=== PATIENT | male | born 1955 | race Caucasian/White ===

== ENCOUNTER 2018-09-03 14:14 | Outpatient (CLI) | payer BC ==
--- NOTE | 2018-09-03 14:32 | RAD ---
LUMBAR SPINE TWO VIEWS: History: Low back pain. FINDINGS: There are five lumbar type vertebrae. Pedicles are intact. Vertebral body height and alignment are ma intained. No aggressive osseous erosions. Osteophytosis of the lower facets. IMPRESSION: Mild osteoarthritic changes lower lumbar spine. No acute osseous abnormalities are demonstrated. POS: [facility]
== END 2018-09-03 14:15 | disposition home or self-care (01) ==
LOC: BICRAD 14:14
PROVIDERS: ATTEND Internal Medicine Rheumatology
DX: M46.99 Unspecified inflammatory spondylopathy, multiple sites in spine (principal); M47.816 Spondylosis without myelopathy or radiculopathy, lumbar region
CPT/HCPCS: 72100

== ENCOUNTER 2024-09-09 17:33 | Inpatient (IN) | payer BC, SELFPAY ==
[2024-09-10 17:55] VITALS: BMI 30.2
[2024-09-11 10:08] LABS: ALT (SGPT) 23 U/L (8-55); AST (SGOT) 17 U/L (5-34); Albumin 3.6 g/dL (3.4-4.8); Alkaline Phosphatase 56 U/L (40-110); Anion Gap 12 mmol/L (10-20); BUN (Urea Nitrogen) 15 mg/dL (8.4-25.7); Bilirubin, Total 0.8 mg/dL (0.2-1.2); Calc. Creatinine Clearance 112 mL/min (70-130); Carbon Dioxide 29 mmol/L (23-31); Chloride 106 mmol/L (98-107); Estimated GFR 88; Globulin 2.8 g/dL (2.4-3.5); Glucose 134 mg/dL (80-115); Potassium 3.7 mmol/L (3.5-5.1); Protein, Total 6.4 g/dL (5.8-8.1); Sodium 143 mmol/L (136-145)
[2024-09-11 18:04] LABS: #Basophils 0.03 10x3/uL (0.0-0.2); %Basophils 0.3 % (0.0-1.0); %Eosinophils 3.5 % (0.0-10.0); %Lymphocytes 24.9 % (21.0-51.0); %Monocytes 10.3 % (0.0-10.0); %Neutrophils 60.7 % (42.0-75.0); Hematocrit 41.4 % (42.0-52.0); Mean Corpuscular HGB CONC 33.8 g/dL (32.0-36.0); Mean Corpuscular Hemoglobin 29.3 pg (27.0-31.0); Mean Corpuscular Volume 86.6 fL (78.0-98.0); Platelet Count 164 10x3/uL (130-400); RBC Distribution Width 13.7 % (11.5-14.5); Red Blood Cell (RBC) Count 4.78 mill/uL (4.70-6.10)
[2024-09-14 12:11] LABS: Hematocrit 43.5 % (42.0-52.0); Hemoglobin 15.2 g/dL (14.0-18.0); Mean Corpuscular HGB CONC 34.9 g/dL (32.0-36.0); Mean Corpuscular Hemoglobin 29.5 pg (27.0-31.0); Mean Corpuscular Volume 84.3 fL (78.0-98.0); RBC Distribution Width 13.4 % (11.5-14.5); Red Blood Cell (RBC) Count 5.16 mill/uL (4.70-6.10); White Blood Cell (WBC) Count 9.94 10x3/uL (4.8-10.8)
[2024-09-14 12:12] LABS: #Basophils 0.04 10x3/uL (0.0-0.2); #Eosinophils 0.11 10x3/uL (0.0-0.7); #Monocytes 0.67 10x3/uL (0.11-0.59); #Neutrophils 7.64 10x3/uL (1.40-6.50); %Basophils 0.4 % (0.0-1.0); %Eosinophils 1.1 % (0.0-10.0); %Lymphocytes 14.6 % (21.0-51.0); %Monocytes 6.7 % (0.0-10.0); %Neutrophils 76.9 % (42.0-75.0); Mean Platelet Volume 10.5 fL (7.4-10.4); Platelet Count 179 10x3/uL (130-400)
[2024-09-14 12:23] LABS: Anion Gap 17 mmol/L (10-20); BUN (Urea Nitrogen) 14 mg/dL (8.4-25.7); Calc. Creatinine Clearance 104 mL/min (70-130); Carbon Dioxide 24 mmol/L (23-31); Chloride 104 mmol/L (98-107); Potassium 3.5 mmol/L (3.5-5.1); Sodium 141 mmol/L (136-145)
[2024-09-14 12:24] LABS: ALT (SGPT) 30 U/L (8-55); AST (SGOT) 21 U/L (5-34); Albumin 4.1 g/dL (3.4-4.8); Alkaline Phosphatase 67 U/L (40-110); Bilirubin, Total 0.9 mg/dL (0.2-1.2); Calcium 9.4 mg/dL (7.8-10.44); Estimated GFR 80; Globulin 3.4 g/dL (2.4-3.5); Glucose 205 mg/dL (80-115); Protein, Total 7.5 g/dL (5.8-8.1)
[2024-09-14 12:25] LABS: Troponin I 0.034 ng/mL (< 0.028)
[2024-09-15 14:19] LABS: Troponin I 0.029 ng/mL (< 0.028)
== END 2024-09-10 18:52 | disposition home or self-care (01) | DRG 312 ==
LOC: ERS 17:33 → OBS 21:23
DX: R55 Syncope and collapse (principal); I10 Essential (primary) hypertension; I44.0 Atrioventricular block, first degree; E11.9 Type 2 diabetes mellitus without complications; N40.0 Benign prostatic hyperplasia without lower urinary tract symptoms; Z88.8 Allergy status to other drugs, medicaments and biological substances; Z79.899 Other long term (current) drug therapy; Z79.84 Long term (current) use of oral hypoglycemic drugs; E78.00 Pure hypercholesterolemia, unspecified; I45.10 Unspecified right bundle-branch block; M79.7 Fibromyalgia
CPT/HCPCS: 78452; 80053; 84484; 85025; 93017; 99285; A9502; J2785